=== PATIENT | female | born 1970 | race Caucasian/White ===

== ENCOUNTER 2016-09-21 12:06 | Emergency (ER) | payer MEDICAID ==
--- NOTE | 2016-09-21 12:50 | EDM.PDOC ---
[id number] ABNORMAL EKG Time Seen by Provider: 09/21/16 12:20 Source of Information: Reports: Patient, Provider History Limitations: Reports: No Limitations - History of Present Illness INITIAL COMMENTS - FREE TEXT/NARRATIVE: 46-year-old female sent over from urgent care clinic with persistent epigastric discomfort for the past several days, palpitations for the last 7 days and an abnormal EKG with narrow complex tachycardia. Labs were drawn and she was found to have an elevated troponin, so was sent over to the emergency room. EKG from the clinic shows a 2:1 atrial flutter at a rate of 150. She is not having any chest pain, just feels "bloated" with some upper abdominal pressure. No shortness of breath or diaphoresis. Denies nausea or vomiting. She is supposed to be taking methimazole medication for Graves' disease but has been off it for the last 2 months. Onset: Gradual, Unknown/Unsure Duration: Week(s): (Symptoms have been ongoing for at least a week) Location: Reports: Chest, Abdomen Severity: Mild Associated Symptoms: Reports: Other (Intermittent sensation of palpitations). Denies: Confusion, Chest Pain, Cough, Fever/Chills, Headaches, Shortness of Breath - Related Data Allergies Allergy/AdvReac Type Severity Reaction Status Date / Time No Known Allergies Allergy Verified 09/21/16 12:43 Home Meds: Home Meds Albuterol [Ventolin HFA] 2 puff PO BID PRN 09/21/16 [History] Aspirin 81 mg PO DAILY 09/21/16 [History] Citalopram [Citalopram HBr] 40 mg PO ASDIRECTED PRN 09/21/16 [History] Methimazole 10 mg PO DAILY 09/21/16 [History] Metoprolol Succinate [Toprol XL] 25 mg PO DAILY 09/21/16 [History] Omeprazole 40 mg PO BID 09/21/16 [History] hydrOXYzine HCl [Atarax] 25 mg PO DAILY PRN 09/21/16 [History] ED ROS GENERAL - Review of Systems Review Of Systems: See Below Constitutional: Denies: Fever, Chills HEENT: Reports: No Symptoms Respiratory: Reports: Shortness of Breath (Intermittent, unrelated to activity) GI/Abdominal: Reports: Abdominal Pain, Distension (Abdomen feels distended, bloated). Denies: Diarrhea : Reports: No Symptoms Skin: Reports: No Symptoms Neurological: Reports: No Symptoms Hematologic/Lymphatic: Reports: Other (Patient has known Graves' disease, has been off her methimazole for the past several months) ED EXAM, GENERAL - Physical Exam Exam: See Below Exam Limited By: No Limitations General Appearance: Alert, No Apparent Distress Eye Exam: Bilateral Eye: EOMI Respiratory/Chest: No Respiratory Distress, Lungs Clear Cardiovascular: Regular Rate, Rhythm, Tachycardia GI/Abdominal: Soft, Other (No significant tenderness to palpation but a fullness or pressure sensation across the upper abdomen) Extremities: Normal Inspection. No: Pedal Edema Neurological: Alert, Oriented, No Motor/Sensory Deficits Psychiatric: Normal Affect, Normal Mood Skin Exam: Warm, Dry EKG INTERPRETATION EKG Interpretation Comments: EKG is reviewed and reveals a 2-1 atrial flutter with a rate of 150 Course - Vital Signs Last Recorded V/S: Last Vital Signs Temp 99.5 F 09/21/16 14:04 Pulse 156 H 09/21/16 14:04 Resp 27 H 09/21/16 14:04 BP 118/73 09/21/16 14:04 Pulse Ox 95 09/21/16 14:04 - Orders/Labs/Meds Labs: Laboratory Tests 09/21/16 09/21/16 09/21/16 Range/Units 12:51 13:13 13:13 TSH, Ultra Sensitive 0.002 L (0.358-3.740) uIU/mL Urine Color Yellow Urine Appearance Clear Urine pH 6.0 (4.5-8.0) Ur Specific [place] 1.010 (1.008-1.030) Urine Protein Negative (NEGATIVE) mg/dL Urine Glucose (UA) Normal (NEGATIVE) mg/dL Urine Ketones Negative (NEGATIVE) mg/dL Urine Occult Blood Negative (NEGATIVE) Urine Nitrite Negative (NEGATIVE) Urine Bilirubin Negative (NEGATIVE) Urine Urobilinogen Normal (NORMAL) mg/dL Ur Leukocyte Esterase Negative (NEGATIVE) Urine RBC 0-5 (0-5) Urine WBC 0-5 (0-5) Ur Epithelial Cells Few Amorphous Sediment Not seen Urine Bacteria Not seen Urine Mucus Not seen Urine Opiates Screen Negative (NEGATIVE) Ur Oxycodone Screen Negative (NEGATIVE) Urine Methadone Screen Negative (NEGATIVE) Ur Propoxyphene Screen Negative (NEGATIVE) Ur Barbiturates Screen Negative (NEGATIVE) Ur Tricyclics Screen Negative (NEGATIVE) Ur Phencyclidine Scrn Negative (NEGATIVE) Ur Amphetamine Screen Negative (NEGATIVE) U Methamphetamines Scrn Negative (NEGATIVE) Urine MDMA Screen Negative (NEGATIVE) U Benzodiazepines Scrn Negative (NEGATIVE) U Cocaine Metab Screen Negative (NEGATIVE) U Marijuana (THC) Screen Negative (NEGATIVE) Meds: Medications Discontinued Medications Generic Name Dose Route Start Last Admin Trade Name Freq PRN Reason Stop Dose Admin Lidocaine HCl 20 ml 09/21/16 14:43 Xylocaine 2% Viscous .XX 09/21/16 14:44 ONETIME ONE - Re-Assessments/Exams Free Text/Narrative Re-Assessment/Exam: 09/21/16 12:55 Labs were reviewed from the clinic. A TSH was added as well as a urine drug screen. 09/21/16 13:48 TSH was 0. Patient remained stable but in 2-1 atrial flutter. I consulted with the hospitalist at [facility] in [place], Dr. Reyes, and he kindly agreed to accept the patient in transfer for evaluation. I strongly recommended ambulance transfer but the patient insisted she be taken by her . Departure - Departure Time of Disposition: 15:00 Disposition: DC/Tfer to Other 70 Condition: Fair Clinical Impression: Hyperthyroidism, Elevated troponin Atrial flutter Qualifiers: Atrial flutter type: typical Qualified Code(s): I48.3 - Typical atrial flutter - Discharge Information Instructions: Hyperthyroidism, Atrial Flutter Referrals: Shira Pleitez PA [Primary Care Provider] - Forms: ED Department Discharge Care Plan Goals: Patient will be transferred to [facility] by private car for direct admit. Do not eat or drink anything prior to being evaluated in [place].
[2016-09-21 14:06] VITALS: BP 118/73
[2016-09-21] MEDS ORDERED: Lidocaine 2% Viscous Solution 100 ML Bottle ONE (14:43)
== END 2016-09-21 14:45 | disposition other institution (70) ==
LOC: JP.ED 12:06
DX: I48.3 Typical atrial flutter (principal); E05.90 Thyrotoxicosis, unspecified without thyrotoxic crisis or storm; R79.89 Other specified abnormal findings of blood chemistry; Z79.82 Long term (current) use of aspirin; Z79.899 Other long term (current) drug therapy
CPT/HCPCS: 36415; 80305; 81001; 84443; 99285; A9270; 99284

== ENCOUNTER 2018-12-10 10:16 | Emergency (ER) | payer MEDICAID ==
[2018-12-10] MEDS ORDERED: Midazolam 1 MG/ML 5 ML SDV ONE (10:21)
[2018-12-10] MEDS ORDERED: Aspirin 81 MG Tab.Chew ONE (10:49)
[2018-12-10] MEDS ORDERED: Aspirin 81 MG Tab.Chew PO ONE (10:54)
[2018-12-10 10:56] VITALS: BP 87/54; PULSE 73
[2018-12-10] MEDS ORDERED: Heparin Sodium 5,000 Units/ML Vial IVPUSH ONE (11:16)
[2018-12-10] MEDS ORDERED: Clopidogrel 75 MG Tab PO ONE (11:19)
[2018-12-10] MEDS ORDERED: Heparin Sodium/D5W 25,000 UNITS/500 ML BAG IV SCH (11:30)
--- NOTE | 2018-12-10 11:50 | EDM.PDOC ---
ED HPI GENERAL MEDICAL PROBLEM - General Chief Complaint: Cardiovascular Problem Stated Complaint: MEDICAL VIA TRI Time Seen by Provider: 12/10/18 10:16 Source of Information: Reports: Patient - History of Present Illness INITIAL COMMENTS - FREE TEXT/NARRATIVE: 48-year-old with extensive cardiac history presented with chest pain, shortness of breath, and ventricular tachycardia. EMS was called to her home for chest pain and shortness of breath. They found her and a wide-complex tachycardia, reportedly this was occasionally narrow complex so en route they administered adenosine twice without effect. She was initially hypotensive but reportedly has responded to fluid bolus. On arrival to the emergency department the patient reports that she physical having chest pain and SOB. Further history is limited due to the patient being in extremis. 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: Other Medication(s) - Related Data Allergies Allergy/AdvReac Type Severity Reaction Status Date / Time No Known Allergies Allergy Verified 09/21/16 12:43 Home Meds: Home Meds Albuterol [Ventolin HFA] 2 puff PO BID PRN 09/21/16 [History] Aspirin 81 mg PO DAILY 09/21/16 [History] Citalopram [Citalopram HBr] 40 mg PO ASDIRECTED PRN 09/21/16 [History] Metoprolol Succinate [Toprol XL] 25 mg PO DAILY 09/21/16 [History] Omeprazole 40 mg PO BID 09/21/16 [History] hydrOXYzine HCl [Atarax] 25 mg PO DAILY PRN 09/21/16 [History] methIMAzole [Methimazole] 10 mg PO DAILY 09/21/16 [History] Past Medical History HEENT History: Reports: Allergic Rhinitis Cardiovascular History: Reports: Afib, GA, Stents Respiratory History: Reports: Asthma Gastrointestinal History: Reports: GERD 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: Psychiatric History: Reports: Anxiety Endocrine/Metabolic History: Reports: Other (See Below) Other Endocrine/Metabolic History: graves disease - Infectious Disease History Infectious Disease History: Reports: Chicken Pox Social & Family History - Family History Family Medical History: Noncontributory Respiratory: Reports: COPD Neurological: Reports: None Psychiatric: Reports: None Endocrine/Metabolic: Reports: None Hematologic: Reports: None - Tobacco Use Smoking Status *Q: Current Every Day Smoker Years of Tobacco use: 35 Packs/Tins Daily: 1 - Caffeine Use Caffeine Use: Reports: Coffee - Recreational Drug Use Recreational Drug Use: No ED ROS GENERAL - Review of Systems Review Of Systems: Unable To Obtain ED EXAM, GENERAL - Physical Exam Exam: See Below Exam Limited By: Altered Mental Status General Appearance: Anxious, Severe Distress Nose: Normal Inspection Throat/Mouth: Normal Inspection Head: Atraumatic, Normocephalic Neck: Normal Inspection Respiratory/Chest: Lungs Clear, Respiratory Distress Cardiovascular: Tachycardia GI/Abdominal: Soft, Non-Tender Extremities: Normal Inspection, No Pedal Edema Neurological: Disoriented, Slow to Respond Psychiatric: Normal Affect, Normal Mood Skin Exam: Warm, Dry ED CARDIOLOGY PROCEDURES - Cardioversion Time of Cardioversion: 10:30 Indication: Unstable Patient Counseled: No Preparation: IV Access, Airway Management Equipment, Supplemental Oxygen, RT in Room, Monitor Pre-Procedure Sedation: Midazolam Cardioversion Energy: Other (150 J, follow by 200J) Mode: Biphasic Successful: Yes Number of Attempts: 2 Patient Condition Post Cardioversion: Improved Post Cardioversion EKG Reviewed: Yes (Anterior ST elevation) EKG INTERPRETATION EKG Date: 12/10/18 Rhythm: A-Fib ST-T: Elevated EKG Interpretation Comments: A-fib, anterior ST elevation without reciprocal changes. Course - Vital Signs Last Recorded V/S: Last Vital Signs Temp 36.5 C 12/10/18 10:24 Pulse 73 12/10/18 10:50 Resp 13 12/10/18 10:50 BP 87/54 L 12/10/18 10:50 Pulse Ox 89 L 12/10/18 10:24 - Orders/Labs/Meds Labs: Laboratory Tests 12/10/18 12/10/18 12/10/18 Range/Units 10:32 10:37 10:37 WBC 13.3 H (4.5-11.0) K/uL RBC 4.76 (3.30-5.50) M/uL Hgb 14.5 (12.0-15.0) g/dL Hct 43.4 (36.0-48.0) % MCV 91 (80-98) fL MCH 31 (27-31) pg MCHC 33 (32-36) % Plt Count 309 (150-400) K/uL PT (9.5-12.0) sec INR (0.80-1.20) APTT (27.0-36.0) sec ABG Hemoglobin 14.5 (12.0-16.0) g/dL ABG Oxyhemoglobin 70.1 % ABG Carboxyhemoglobin 5.8 H (0.0-1.6) % ABG Methemoglobin 0.8 % VBG pH 7.354 (7.350-7.450) VBG pCO2 35.6 mm/Hg VBG pO2 41.4 mm/Hg VBG HCO3 19.3 mmol/L VBG Total CO2 17.2 mmol/L VBG O2 Saturation 75.1 VBG O2 Content 14.2 %vol VBG Base Excess -5.0 mm/L O2 Delivery Device Room air Sodium 141 (140-148) mmol/L Potassium 3.2 L (3.6-5.2) mmol/L Chloride 104 (100-108) mmol/L Carbon Dioxide 19 L (21-32) mmol/L Anion Gap 21.2 H (5.0-14.0) mmol/L BUN 6 L (7-18) mg/dL Creatinine 1.0 (0.6-1.0) mg/dL Est Cr Clr Drug Dosing 60.06 mL/min Estimated GFR (MDRD) 59 L (>60) Glucose 235 H (74-106) mg/dL Calcium 8.1 L (8.5-10.1) mg/dL Magnesium 1.8 (1.8-2.4) mg/dL Total Bilirubin 0.3 (0.2-1.0) mg/dL AST 41 H (15-37) U/L ALT 43 (12-78) U/L Alkaline Phosphatase 76 (46-116) U/L Troponin I (0.000-0.056) ng/mL Total Protein 7.2 (6.4-8.2) g/dL Albumin 3.7 (3.4-5.0) g/dL Globulin 3.5 (2.3-3.5) g/dL Albumin/Globulin Ratio 1.1 L (1.2-2.2) Urine Opiates Screen (NEGATIVE) Ur Oxycodone Screen (NEGATIVE) Urine Methadone Screen (NEGATIVE) Ur Propoxyphene Screen (NEGATIVE) Ur Barbiturates Screen (NEGATIVE) Ur Tricyclics Screen (NEGATIVE) Ur Phencyclidine Scrn (NEGATIVE) Ur Amphetamine Screen (NEGATIVE) U Methamphetamines Scrn (NEGATIVE) Urine MDMA Screen (NEGATIVE) U Benzodiazepines Scrn (NEGATIVE) U Cocaine Metab Screen (NEGATIVE) U Marijuana (THC) Screen (NEGATIVE) Ethyl Alcohol mg/dL 12/10/18 12/10/18 12/10/18 Range/Units 10:37 10:40 10:40 WBC (4.5-11.0) K/uL RBC (3.30-5.50) M/uL Hgb (12.0-15.0) g/dL Hct (36.0-48.0) % MCV (80-98) fL MCH (27-31) pg MCHC (32-36) % Plt Count (150-400) K/uL PT 10.9 (9.5-12.0) sec INR 1.01 (0.80-1.20) APTT 26.8 L (27.0-36.0) sec ABG Hemoglobin (12.0-16.0) g/dL ABG Oxyhemoglobin % ABG Carboxyhemoglobin (0.0-1.6) % ABG Methemoglobin % VBG pH (7.350-7.450) VBG pCO2 mm/Hg VBG pO2 mm/Hg VBG HCO3 mmol/L VBG Total CO2 mmol/L VBG O2 Saturation VBG O2 Content %vol VBG Base Excess mm/L O2 Delivery Device Sodium (140-148) mmol/L Potassium (3.6-5.2) mmol/L Chloride (100-108) mmol/L Carbon Dioxide (21-32) mmol/L Anion Gap (5.0-14.0) mmol/L BUN (7-18) mg/dL Creatinine (0.6-1.0) mg/dL Est Cr Clr Drug Dosing mL/min Estimated GFR (MDRD) (>60) Glucose (74-106) mg/dL Calcium (8.5-10.1) mg/dL Magnesium (1.8-2.4) mg/dL Total Bilirubin (0.2-1.0) mg/dL AST (15-37) U/L ALT (12-78) U/L Alkaline Phosphatase (46-116) U/L Troponin I 0.088 H* (0.000-0.056) ng/mL Total Protein (6.4-8.2) g/dL Albumin (3.4-5.0) g/dL Globulin (2.3-3.5) g/dL Albumin/Globulin Ratio (1.2-2.2) Urine Opiates Screen (NEGATIVE) Ur Oxycodone Screen (NEGATIVE) Urine Methadone Screen (NEGATIVE) Ur Propoxyphene Screen (NEGATIVE) Ur Barbiturates Screen (NEGATIVE) Ur Tricyclics Screen (NEGATIVE) Ur Phencyclidine Scrn (NEGATIVE) Ur Amphetamine Screen (NEGATIVE) U Methamphetamines Scrn (NEGATIVE) Urine MDMA Screen (NEGATIVE) U Benzodiazepines Scrn (NEGATIVE) U Cocaine Metab Screen (NEGATIVE) U Marijuana (THC) Screen (NEGATIVE) Ethyl Alcohol < 3 mg/dL 12/10/18 Range/Units 11:17 WBC (4.5-11.0) K/uL RBC (3.30-5.50) M/uL Hgb (12.0-15.0) g/dL Hct (36.0-48.0) % MCV (80-98) fL MCH (27-31) pg MCHC (32-36) % Plt Count (150-400) K/uL PT (9.5-12.0) sec INR (0.80-1.20) APTT (27.0-36.0) sec ABG Hemoglobin (12.0-16.0) g/dL ABG Oxyhemoglobin % ABG Carboxyhemoglobin (0.0-1.6) % ABG Methemoglobin % VBG pH (7.350-7.450) VBG pCO2 mm/Hg VBG pO2 mm/Hg VBG HCO3 mmol/L VBG Total CO2 mmol/L VBG O2 Saturation VBG O2 Content %vol VBG Base Excess mm/L O2 Delivery Device Sodium (140-148) mmol/L Potassium (3.6-5.2) mmol/L Chloride (100-108) mmol/L Carbon Dioxide (21-32) mmol/L Anion Gap (5.0-14.0) mmol/L BUN (7-18) mg/dL Creatinine (0.6-1.0) mg/dL Est Cr Clr Drug Dosing mL/min Estimated GFR (MDRD) (>60) Glucose (74-106) mg/dL Calcium (8.5-10.1) mg/dL Magnesium (1.8-2.4) mg/dL Total Bilirubin (0.2-1.0) mg/dL AST (15-37) U/L ALT (12-78) U/L Alkaline Phosphatase (46-116) U/L Troponin I (0.000-0.056) ng/mL Total Protein (6.4-8.2) g/dL Albumin (3.4-5.0) g/dL Globulin (2.3-3.5) g/dL Albumin/Globulin Ratio (1.2-2.2) Urine Opiates Screen Negative (NEGATIVE) Ur Oxycodone Screen Negative (NEGATIVE) Urine Methadone Screen Negative (NEGATIVE) Ur Propoxyphene Screen Negative (NEGATIVE) Ur Barbiturates Screen Negative (NEGATIVE) Ur Tricyclics Screen Negative (NEGATIVE) Ur Phencyclidine Scrn Negative (NEGATIVE) Ur Amphetamine Screen Negative (NEGATIVE) U Methamphetamines Scrn Negative (NEGATIVE) Urine MDMA Screen Negative (NEGATIVE) U Benzodiazepines Scrn Negative (NEGATIVE) U Cocaine Metab Screen Negative (NEGATIVE) U Marijuana (THC) Screen Negative (NEGATIVE) Ethyl Alcohol mg/dL Meds: Medications Discontinued Medications Generic Name Dose Route Start Last Admin Trade Name Caitie PRN Reason Stop Dose Admin Aspirin Confirm 12/10/18 10:49 12/10/18 10:51 Aspirin Administered 12/10/18 10:50 324 mg Dose Administration 324 mg .ROUTE .STK-MED ONE Aspirin 324 mg 12/10/18 10:54 12/10/18 10:56 Aspirin PO 12/10/18 10:55 Not Given ONETIME ONE Clopidogrel Bisulfate 600 mg 12/10/18 11:19 12/10/18 11:26 Plavix PO 12/10/18 11:20 600 mg ONETIME ONE Administration Heparin Sodium (Porcine) 5,000 units 12/10/18 11:16 12/10/18 11:26 Heparin Sodium IVPUSH 12/10/18 11:17 5,000 units ONETIME ONE Administration Amiodarone HCl 450 mg/ 250 mls @ 33.33 mls/hr 12/10/18 10:45 12/10/18 10:39 Dextrose/Water IV 1 mg/min ASDIRECTED DAT 33.33 mls/hr Administration Protocol 1 MG/MIN Heparin Sodium/Dextrose 25,000 units in 500 mls @ 16.329 mls/hr 12/10/18 11: 30 12/10/18 11:27 Heparin 25,000 Units In D5w 500 Ml IV 12 units/kg/hr TITRATE DAT 16.329 mls/hr Administration Protocol 12 UNITS/KG/HR - Re-Assessments/Exams Free Text/Narrative Re-Assessment/Exam: 48-year-old with history of coronary artery disease presented with chest pain, dyspnea, and found to be in ventricular tachycardia. Upon initial arrival to the emergency department she was alert and answering questions while EMS report was being given. While being hooked up to the monitor and the defibrillator when the patient had seizure-like activity, we administered 2 mg of Versed. The seizure activity abated, she was looking around the room but disoriented, initial blood pressure was 86/64. While an amiodarone bolus was being administered the patient's mental status again began to wane. Performed synchronized cardioversion initially with 150 J, this was unsuccessful , second shock at 200J converted her back to A. fib with normal rate. EKG was obtained which showed evidence of anterior ST elevation without reciprocal changes. Bedside echocardiogram was performed which showed apparent anterior wall hypokinesis and reduced EF. At this point the patient's mental status began to improve. We then began treatments for STEMI, she was given aspirin, loaded with heparin as well as Plavix. She was started on amiodarone infusion. Blood work returned generally unremarkable, K and magnesium were okay. Her initial troponin was only mildly elevated that this may be due to the relatively recent onset of her chest pain. 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 Her mental status did continue to clear all she was in the emergency room prior to transfer, I suspect she was postictal due to her seizure in the setting of likely hypoperfusion during her run of VT. 12/10/18 11:51ini Departure - Departure Time of Disposition: 11:30 Disposition: DC/Tfer to Acute Hospital 02 Reason for Transfer *Q: Primary PCI Indicated Clinical Impression: Ventricular tachycardia STEMI (ST elevation myocardial infarction) Qualifiers: Involved coronary artery: LAD coronary artery Qualified Code(s): I21.02 - ST elevation (STEMI) myocardial infarction involving left anterior descending coronary artery Referrals: PCP,None [Primary Care Provider] - Forms: ED Department Discharge Critical Care Note - Critical Care Note Total Time (mins): 70 Comments: I directly spent 70 minutes of critical care time including time spend resuscitating the patient from untable ventricular tachycardia, treating seizure , reassessing mental status and ability to protect airway, assessing cardiac function with ultrasound, and administering treatment for STEMI.
== END 2018-12-10 12:00 ==
LOC: JP.ED 10:16
DX: I21.02 ST elevation (STEMI) myocardial infarction involving left anterior descending coronary artery (principal); J45.909 Unspecified asthma, uncomplicated; I25.2 Old myocardial infarction; K21.9 Gastro-esophageal reflux disease without esophagitis; F17.210 Nicotine dependence, cigarettes, uncomplicated; Z79.82 Long term (current) use of aspirin; Z95.5 Presence of coronary angioplasty implant and graft; Z79.899 Other long term (current) drug therapy
CPT/HCPCS: 36415; 80053; 80305; 80320; 82803; 83735; 84484; 85027; 85610; 85730; 93005; A9270; J0282; J1644; J7060; 96365; 96368; 99285-25; G0480

== ENCOUNTER 2021-12-22 07:49 | Day surgery (SDC) | payer MEDICAID ==
[~2021-12-22 07:49] MED LIST: Midazolam 1 MG/ML 2 ML SDV ONE; Propofol 200 MG/20 ML SDV ONE; fentaNYL 50 MCG/ML SDV ONE
[2021-12-22] MEDS ORDERED: Lactated Ringers 1,000 ML IV SCH (08:30)
[2021-12-22] MEDS ORDERED: Propofol 200 MG/20 ML SDV ONE (08:58)
[2021-12-22 10:15] VITALS: BP 116/75; PULSE 74
== END 2021-12-22 10:24 | disposition home or self-care (01) ==
LOC: JP.SDS 07:49
PROVIDERS: ATTEND Student in an Organized Health Care Education/Training Program
DX: Z12.11 Encounter for screening for malignant neoplasm of colon (principal); K21.9 Gastro-esophageal reflux disease without esophagitis; J45.909 Unspecified asthma, uncomplicated; F17.200 Nicotine dependence, unspecified, uncomplicated; I11.0 Hypertensive heart disease with heart failure; I48.92 Unspecified atrial flutter
CPT/HCPCS: 87081; J2250; J2704; J3010; J7120

== ENCOUNTER 2022-02-14 07:19 | Emergency (ER) | payer MEDICAID ==
[2022-02-14] MEDS ORDERED: Levalbuterol HCl 1.25 MG/3 ML Neb NEB ONE (08:01)
[2022-02-14 09:53] VITALS: BP 102/62; PULSE 62
== END 2022-02-14 10:22 | disposition home or self-care (01) ==
LOC: JP.ED 07:19
DX: T82.897A Other specified complication of cardiac prosthetic devices, implants and grafts, initial encounter (principal); I42.9 Cardiomyopathy, unspecified; E87.6 Hypokalemia; J44.9 Chronic obstructive pulmonary disease, unspecified; E03.9 Hypothyroidism, unspecified; F17.210 Nicotine dependence, cigarettes, uncomplicated; Z88.5 Allergy status to narcotic agent; Z79.899 Other long term (current) drug therapy; Z79.82 Long term (current) use of aspirin; Z90.49 Acquired absence of other specified parts of digestive tract
CPT/HCPCS: 36415; 71045; 80048; 83735; 83880; 84100; 84443; 93005; 94640; 99284; J7612

== ENCOUNTER 2022-05-06 21:07 | Emergency (ER) | payer MEDICAID ==
[2022-05-06 21:51] LABS: ESTIMATED GFR 77 mL/min (>60); TROPONIN I HIGH SENSITIVITY 24.4 pg/mL (<=60.3)
[2022-05-06 22:35] VITALS: BP 96/61; PULSE 60
== END 2022-05-06 22:43 | disposition home or self-care (01) ==
LOC: JP.ED 21:07
DX: I47.9 Paroxysmal tachycardia, unspecified (principal); A08.4 Viral intestinal infection, unspecified; I42.9 Cardiomyopathy, unspecified; J44.9 Chronic obstructive pulmonary disease, unspecified; I48.91 Unspecified atrial fibrillation; I25.2 Old myocardial infarction; K21.9 Gastro-esophageal reflux disease without esophagitis; E03.9 Hypothyroidism, unspecified; J45.909 Unspecified asthma, uncomplicated; Z88.5 Allergy status to narcotic agent; Z79.82 Long term (current) use of aspirin; Z79.01 Long term (current) use of anticoagulants; Z79.899 Other long term (current) drug therapy; Z95.1 Presence of aortocoronary bypass graft
CPT/HCPCS: 36415; 71046; 71046-26; 80053; 83735; 84484; 85025; 86140; 93005; 93010; 99283; 99285

== ENCOUNTER 2022-05-25 17:28 | Emergency (ER) | payer MEDICAID ==
[2022-05-25 18:38] LABS: ESTIMATED GFR 77 mL/min (>60)
[2022-05-25 20:02] VITALS: BP 98/50; PULSE 54
== END 2022-05-25 20:10 | disposition home or self-care (01) ==
LOC: JP.ED 17:28
DX: T82.897A Other specified complication of cardiac prosthetic devices, implants and grafts, initial encounter (principal); R00.2 Palpitations; I48.91 Unspecified atrial fibrillation; I25.10 Atherosclerotic heart disease of native coronary artery without angina pectoris; I11.0 Hypertensive heart disease with heart failure; I50.9 Heart failure, unspecified; I25.2 Old myocardial infarction; K21.9 Gastro-esophageal reflux disease without esophagitis; E03.9 Hypothyroidism, unspecified; Z86.16 Personal history of COVID-19; Z88.5 Allergy status to narcotic agent; Z79.82 Long term (current) use of aspirin; Z95.0 Presence of cardiac pacemaker; Z79.899 Other long term (current) drug therapy; Z79.01 Long term (current) use of anticoagulants; Z72.0 Tobacco use
CPT/HCPCS: 36415; 80053; 85025; 93005; 99285

== ENCOUNTER 2023-06-05 19:52 | Emergency (ER) | payer MEDICAID, OTHER ==
[2023-06-05] MEDS: Amiodarone 150 MG/3 ML SDV IVPUSH ONE (20:11)
[2023-06-05 20:24] LABS: HEMOGLOBIN 15.1 g/dL (11.2-15.5)
[2023-06-05 20:30] LABS: WHITE BLOOD CELL COUNT,WBC 8.1 K/uL (3.2-11.0)
[2023-06-05 20:36] LABS: PLATELET COUNT,PLT 218 K/uL (130-375)
[2023-06-05 20:39] LABS: A/G RATIO 0.9 (1.2-2.2); ALANINE AMINOTRANSFERASE,ALT 27 U/L (12-78); ALBUMIN 3.7 g/dL (3.4-5.0); ALKALINE PHOSPHATASE 70 U/L (46-116); ASPARTATE AMNIOTRANSFERASE,AST 19 U/L (15-37); BILIRUBIN TOTAL 0.4 mg/dL (0.2-1.0); BLOOD UREA NITROGEN,BUN 12 mg/dL (7-18); CARBON DIOXIDE,CO2 26 mmol/L (21-32); CHLORIDE,CL 101 mmol/L (100-108); EST CRCL DRUG DOSING (CG) 63.99 mL/min; ESTIMATED GFR 68 mL/min (>60); GLUCOSE RANDOM 122 mg/dL (74-106); MAGNESIUM 2.1 mg/dL (1.8-2.4); POTASSIUM,K 3.2 mmol/L (3.6-5.2); PROTEIN TOTAL,TP 7.8 g/dL (6.4-8.2); SODIUM,NA 137 mmol/L (140-148); TROPONIN I HIGH SENSITIVITY 22.7 pg/mL (<=60.3)
[2023-06-05 20:41] LABS: ANION GAP 13.2 mmol/L (5.0-14.0)
[2023-06-05 20:50] LABS: EOSINOPHILS ABSOLUTE MAN 0.08 K/uL (0.00-0.40); EOSINOPHILS PERCENT MAN 1 % (2-4); LYMPHOCYTES ABSOLUTE MAN 2.92 K/uL (0.8-3.3); LYMPHOCYTES PERCENT MAN 36 % (24-44); MONOCYTES ABSOLUTE MAN 0.73 K/uL (0.20-0.90); MONOCYTES PERCENT MAN 9 % (2-6); NEUTROPHILS ABSOLUTE MAN 4.37 K/uL (1.0-7.6)
[2023-06-05] MEDS ORDERED: Propofol 200 MG/20 ML SDV ONE (20:58)
[2023-06-05 21:39] VITALS: BP 91/58; PULSE 162
[2023-06-05] MEDS: Metoprolol Succinate 50 MG Tab.ER PO ONE (22:29)
[2023-06-08 12:55] LABS: SEG NEUTROPHILS PERCENT MAN 53 % (36-66)
== END 2023-06-05 22:15 | disposition home or self-care (01) ==
LOC: JP.ED 19:52
DX: I47.20 Ventricular tachycardia, unspecified (principal); I48.91 Unspecified atrial fibrillation; I25.10 Atherosclerotic heart disease of native coronary artery without angina pectoris; I11.0 Hypertensive heart disease with heart failure; I50.9 Heart failure, unspecified; I25.2 Old myocardial infarction; E78.5 Hyperlipidemia, unspecified; J45.909 Unspecified asthma, uncomplicated; E03.9 Hypothyroidism, unspecified; Z88.5 Allergy status to narcotic agent; Z79.82 Long term (current) use of aspirin; Z79.899 Other long term (current) drug therapy; Z86.19 Personal history of other infectious and parasitic diseases; Z86.16 Personal history of COVID-19; Z95.1 Presence of aortocoronary bypass graft
CPT/HCPCS: 36415; 80053; 83735; 84484; 85025; 93005; 96374; 99285; J0282; J2704

== ENCOUNTER 2023-09-23 02:16 | Emergency (ER) | payer MEDICAID ==
[2023-09-23] MEDS: Propofol 200 MG/20 ML SDV IVPUSH ONE (02:50)
[2023-09-23] MEDS: Sodium Chloride 0.9% 1,000 ML IV SCH (02:50)
[2023-09-23 03:01] VITALS: BP 99/56; PULSE 155
== END 2023-09-23 03:50 | disposition home or self-care (01) ==
LOC: JP.ED 02:16
DX: R00.0 Tachycardia, unspecified (principal); I48.91 Unspecified atrial fibrillation; I25.10 Atherosclerotic heart disease of native coronary artery without angina pectoris; I11.0 Hypertensive heart disease with heart failure; I50.9 Heart failure, unspecified; I25.2 Old myocardial infarction; K21.9 Gastro-esophageal reflux disease without esophagitis; E03.9 Hypothyroidism, unspecified; Z86.16 Personal history of COVID-19; E78.5 Hyperlipidemia, unspecified; Z95.1 Presence of aortocoronary bypass graft; Z88.5 Allergy status to narcotic agent; Z79.82 Long term (current) use of aspirin; Z79.51 Long term (current) use of inhaled steroids; Z79.899 Other long term (current) drug therapy; Z79.01 Long term (current) use of anticoagulants; Z90.49 Acquired absence of other specified parts of digestive tract
CPT/HCPCS: 92960; 93005; 96360; 99284; J2704; J7030; 93010